=== PATIENT | female | born 1995 | race American Indian/Alaskan Native ===

== ENCOUNTER 2021-01-19 09:29 | Outpatient (CLI) | payer MEDICAID ==
--- NOTE | 2021-01-19 13:23 | Ultrasound Report ---
ULTRASOUND PELVIS INDICATION / CLINICAL INFORMATION: PELVIC MASS. LMP 12/22/2020. TECHNIQUE: Transabdominal. Duplex Color Doppler used: Yes. COMPARISON: None available FINDINGS: UTERUS: - Appearance: No significant abnormality. - Size (cm): 7.6 cm - Endometrial Complex (if present): No significant abnormality.. Thickness in cm (if measured) = 0.3 cm - Mass or cyst: None. - Additional findings: None. RIGHT ADNEXA: The right ovary measures 3.5 cm. No significant ovarian cyst or mass. Normal color Dopp ler blood flow. Within the right adnexa, there is an echogenic lesion measuring 6.7 x 8.0 x 6.2 cm. T his does not appear to be connected to the right ovary. No evidence of peristalsis to indicate bowel. LEFT ADNEXA: The left ovary measures 2.0 cm. No significant ovarian cyst or mass. Normal color Dopple r blood flow. URINARY BLADDER: No significant abnormality. FREE FLUID: None. ADDITIONAL FINDINGS: None. IMPRESSION: 1. Nonspecific right adnexal lesion. This could be a fat-containing dermoid; however, findings are no nspecific.Recommend CT with contrast for further evaluation. Scribed by: Ale Alvarez RDMS, RVT Scribed: 01/19/2021 10:16 AM Signer Name: Oh Nuno MD Signed: 01/19/2021 1:19 PM Workstation Name: [id number]
== END 2021-01-19 09:30 | disposition home or self-care (01) ==
LOC: US 09:29
PROVIDERS: ATTEND Internal Medicine
DX: R19.09 Other intra-abdominal and pelvic swelling, mass and lump (principal)
CPT/HCPCS: 76856

== ENCOUNTER 2021-07-27 10:50 | Emergency (ER) | payer MEDICAID ==
--- NOTE | 2021-07-27 12:35 | Emergency Department Report ---
HPI - General Chief Complaint: Upper Respiratory Infection Time Seen by Provider: 07/27/21 12:10 - HPI HPI: 26-year-old -[place] female presents to the emergency department with complaint of a 3-day history of a productive cough. She denies any fever, chills, back pain, shortness of breath, head congestion, nausea, vomiting or diarrhea. She denies any past medical history. No recent travel or sick contacts at home. She is not vaccinated against COVID-19. She has not taken anything for symptoms prior to presentation. She denies any tobacco or illicit drug use. ED Past Medical Hx - Past Medical History Previous Medical History?: No - Surgical History Past Surgical History?: No - Medications Home Medications: Home Medications Medication Instructions Recorded Confirmed Last Taken Type Benzonatate [Tessalon Perles] 100 mg PO Q8HR PRN #20 capsule 07/27/21 Unknown Rx ED Review of Systems ROS: Stated complaint: COLD LIKE SYMPTOMS Other details as noted in HPI Comment: All other systems reviewed and negative Constitutional: denies: chills, fever Eyes: denies: eye pain, vision change ENT: denies: ear pain, throat pain Respiratory: cough. denies: shortness of breath Cardiovascular: denies: chest pain, palpitations Gastrointestinal: denies: abdominal pain, vomiting Genitourinary: denies: dysuria, discharge Musculoskeletal: denies: back pain, arthralgia Skin: denies: rash, lesions Neurological: denies: headache, weakness Physical Exam - Physical Exam Physical Exam: GENERAL: The patient is well-developed well-nourished. HENT: Normocephalic. Atraumatic. Patient has moist mucous membranes. EYES: Extraocular motions are intact. NECK: Supple. Trachea is midline. CHEST/LUNGS: Clear to auscultation. No cough heard during examination. No tachypnea or accessory muscle use. HEART/CARDIOVASCULAR: Regular. There is no tachycardia. There is no murmur. ABDOMEN: Abdomen is soft, nontender. Patient has normal bowel sounds. SKIN: Skin is warm and dry. NEURO: The patient is awake, alert, and oriented. The patient is cooperative. Normal speech. MUSCULOSKELETAL: There is no tenderness or deformity. ED Medical Decision Making - Radiology Data Radiology results: image reviewed interpreted by me: Chest x-ray does not show any acute process. There are no pleural effusions, obvious pneumonia and there is no pneumothorax. No widened mediastinum. - Medical Decision Making This patient presents to the emergency department with a 3-day history of a productive cough. She denies any shortness of breath or any other symptoms. On examination no cough heard during examination. Heart and lung sounds are normal to auscultation and the patient does not appear in any respiratory or acute distress. Vital signs reassuring including being afebrile and no hypoxia. Chest x-ray does not show any pneumonia, pleural effusions, pneumothorax, widened mediastinum, or any other acute process. The patient be discharged home with an antitussive prescription and given referrals for primary care. Critical Care Time: No Critical care attestation.: If time is entered above; I have spent that time in minutes in the direct care of this critically ill patient, excluding procedure time. ED Disposition Clinical Impression: Cough Disposition: 01 HOME / SELF CARE / HOMELESS Is pt being admited?: No Condition: Stable Instructions: Cough, Adult Additional Instructions: Please follow-up with a primary care physician in the next few days. I have given you a referral for a local primary care physician, Dr. Rubio, and a primary care clinic, [facility]. Return to the emergency department with any worsening of your symptoms, new or concerning symptoms not addressed during this current emergency department visit, or with any acute distress. Prescriptions: Benzonatate [Tessalon Perles] 100 mg PO Q8HR PRN #20 capsule PRN Reason: Cough Referrals: PRIMARY CAREMD [Primary Care Provider] - 3-5 Days GHAZAL RUBIO MD [Staff Physician] - 3-5 Days [facility] [Provider Group] - 3-5 Days Time of Disposition: 12:52
--- NOTE | 2021-07-27 12:46 | XRay Report ---
CHEST 2 VIEWS INDICATION: cough. COMPARISON: None. FINDINGS: Support devices: None. Heart: Within normal limits. Lungs/Pleura: No acute air space or interstitial disease. No significant pleural effusion. IMPRESSION: No acute findings. Signer Name: Ad Sivla MD Signed: 07/27/2021 12:41 PM Workstation Name: [id number]
[2021-07-27 13:43] VITALS: BP 98/64
== END 2021-07-27 13:44 | disposition home or self-care (01) ==
LOC: ED 10:50
DX: R05.9 Cough, unspecified (principal)
CPT/HCPCS: 71046; 99283